=== PATIENT | female | born 1965 | race Two or more races ===

== ENCOUNTER → 2020-06-13 | Outpatient (CLI) | payer MEDICAID | END | disposition home or self-care (01) | LOC: Rad HDHVI 13:55 | PROVIDERS: ATTEND Internal Medicine | DX: I31.3 Pericardial effusion (noninflammatory) (principal); I10 Essential (primary) hypertension; R07.89 Other chest pain | CPT/HCPCS: 93306 ==

== ENCOUNTER → 2020-08-20 | Outpatient (CLI) | payer MEDICAID ==
[~2020-08-20] VITALS: Ht 160 cm; Wt 65.3 kg
[~2020-08-20] MED LIST: ADENOSINE 55 MG in GIVE UN-DILUTED 0 ML IV ONE; ADENOSINE 90 MG/30 ML INJ IV ONE
== END | disposition home or self-care (01) ==
LOC: Rad HDHVI 08:09
PROVIDERS: ATTEND Internal Medicine
DX: I10 Essential (primary) hypertension (principal); E78.00 Pure hypercholesterolemia, unspecified; E11.9 Type 2 diabetes mellitus without complications; F17.210 Nicotine dependence, cigarettes, uncomplicated; R06.02 Shortness of breath; R07.9 Chest pain, unspecified
CPT/HCPCS: 78452; 93005; 96374; 96375; A9500; J0153

== ENCOUNTER 2021-01-18 21:12 | Inpatient (IN) | payer MEDICAID ==
[~2021-01-18] VITALS: Ht 154.9 cm; Wt 64.8 kg
[2021-01-18 22:32] LABS: Basophils # (auto) 0.1 10 ^3/uL (0-0.2); Basophils % (auto) 0.7 % (0.0-2.0); Eosinophils # (auto) 0.3 10 ^3/uL (0-0.8); Eosinophils % (auto) 2.7 % (0.0-7.0); Hematocrit 39.2 % (36.0-46.0); Hemoglobin 14.1 g/dL (12.2-16.2); Lymphocytes # (auto) 3.5 10 ^3/uL (0.4-5.4); Lymphocytes % (auto) 35.2 % (10.0-50.0); Mean Corpuscular Hemoglobin 31.7 pg (28.0-32.0); Mean Corpuscular Hgb Conc. 35.9 g/dL (32.0-36.0); Mean Corpuscular Volume 88.3 fL (80.0-100.0); Monocytes # (auto) 0.6 10 ^3/uL (0-1.3); Monocytes % (auto) 6.3 % (0.0-12.0); Neutrophils # (auto) 5.5 10 ^3/uL (1.6-8.6); Neutrophils % (auto) 55.1 % (37.0-80.0); Nucleated Red Blood Cells % 0.3 %; Platelet Count (auto) 314 10^3/uL (140-450); Red Blood Cells 4.44 10^6/uL (4.0-5.20); Red Cell Distribution Width 13.1 % (11.8-14.3)
[2021-01-18 22:47] LABS: Alanine Aminotransferase 22 U/L (13-56); Albumin 3.1 g/dL (3.4-5.0); Anion Gap 7 (5-15); Aspartate Aminotransferase 20 U/L (15-37); BUN/Creatinine Ratio 22.1; Blood Urea Nitrogen 15 mg/dL (7-18); Calcium 8.4 mg/dL (8.5-10.1); Carbon Dioxide 25 mmol/L (21-32); Chloride 100 mmol/L (98-107); GFR African American 115 mL/min; GFR Non-African American 95 mL/min; Glucose 337 mg/dL (74-106); Potassium 3.8 mmol/L (3.5-5.1); Sodium 132 mmol/L (136-145)
[2021-01-18 22:48] LABS: INR 1.02 (0.9-1.15); Partial Thromboplastin Time 26.8 sec (23.0-31.2)
[2021-01-18 22:51] LABS: Alkaline Phosphatase 119 U/L (45-117); Bilirubin, Total 0.2 mg/dL (0.2-1.0); Total Protein 7.4 g/dL (6.4-8.2)
[2021-01-19] MEDS ORDERED: MORPHINE SULF INJ 2 MG/ML SYRINGE 1ML IV PRN (05:45)
[2021-01-19] MEDS ORDERED: NITROGLYCERIN 0.4 MG SL TAB SL PRN (05:45)
[2021-01-19] MEDS ORDERED: DEXTROSE (50%) 50ML SYRG IV PRN (06:00)
[2021-01-19] MEDS: ACCU-CHEK COMFORT CURVE STRIP VI SCH ×4 (07:08→21:36)
[2021-01-19 07:21] LABS: Cholesterol 226 mg/dL (< 200)
[2021-01-19] MEDS: InsuLIN REG 1unit/0.01ml Soln (100units/ml) SC SCH ×4 (07:22→21:36)
[2021-01-19 07:23] LABS: HDL Cholesterol 32 mg/dL (40-59); LDL Cholesterol 148 mg/dL (< 100); Triglycerides 374 mg/dL (< 150)
[2021-01-19] MEDS: ASPirin 81 mg TAB PO SCH (10:37)
[2021-01-19] MEDS: ATORVASTATIN 20 MG TAB PO SCH (10:38)
[2021-01-19] MEDS: METOPROLOL TARTRATE 25 MG TAB PO SCH ×2 (10:39→21:33)
[2021-01-19] MEDS: ENOXAPARIN SOD 40 MG/0.4 ML SYRINGE SC SCH (10:41)
[2021-01-19 11:02] VITALS: BP 161/88
[2021-01-19] MEDS ORDERED: LISINOPRIL 10 MG TAB PO ONE (11:15)
[2021-01-19 12:19] LABS: Urine Bacteria FEW /hpf (None Seen); Urine Blood Negative /uL (Negative); Urine Hyaline Cast FEW /lpf (0 - 2); Urine Mucus FEW (None Seen); Urine Specific Gravity 1.026 (1.001-1.035); Urine WBC 8 /hpf (0 - 5)
[2021-01-19 13:00] VITALS: BP_SYST 142; BP_SYST 144; BP_DIAS 75; BP_DIAS 82
[2021-01-19] MEDS: GEMFIBROZIL 600 MG TAB PO SCH (13:21)
[2021-01-19 16:42] VITALS: BP 143/71
[2021-01-19 21:55] VITALS: BP 134/82
[2021-01-20 05:26] VITALS: BP 132/75
[2021-01-20] MEDS: ACCU-CHEK COMFORT CURVE STRIP VI SCH ×4 (06:03→21:44)
[2021-01-20] MEDS: InsuLIN REG 1unit/0.01ml Soln (100units/ml) SC SCH ×4 (06:04→21:46)
[2021-01-20 06:08] LABS: Basophils # (auto) 0 10 ^3/uL (0-0.2); Basophils % (auto) 0.5 % (0.0-2.0); Eosinophils # (auto) 0.2 10 ^3/uL (0-0.8); Eosinophils % (auto) 2.7 % (0.0-7.0); Hematocrit 37.4 % (36.0-46.0); Hemoglobin 13.2 g/dL (12.2-16.2); Lymphocytes # (auto) 2.6 10 ^3/uL (0.4-5.4); Lymphocytes % (auto) 35.1 % (10.0-50.0); Mean Corpuscular Hemoglobin 30.7 pg (28.0-32.0); Mean Corpuscular Hgb Conc. 35.2 g/dL (32.0-36.0); Mean Corpuscular Volume 87.3 fL (80.0-100.0); Monocytes # (auto) 0.6 10 ^3/uL (0-1.3); Monocytes % (auto) 7.5 % (0.0-12.0); Neutrophils % (auto) 54.2 % (37.0-80.0); Platelet Count (auto) 288 10^3/uL (140-450); Red Blood Cells 4.28 10^6/uL (4.0-5.20); Red Cell Distribution Width 12.7 % (11.8-14.3); White Blood Cell 7.4 10^3/uL (4.4-10.8)
[2021-01-20 06:37] LABS: BUN/Creatinine Ratio 36.4; Calcium 8.6 mg/dL (8.5-10.1)
[2021-01-20 09:00] VITALS: BP 140/77
[2021-01-20] MEDS: ASPirin 81 mg TAB PO SCH (09:14)
[2021-01-20] MEDS: METOPROLOL TARTRATE 25 MG TAB PO SCH ×2 (09:14→21:43)
[2021-01-20] MEDS: ATORVASTATIN 20 MG TAB PO SCH (09:14)
[2021-01-20] MEDS: GEMFIBROZIL 600 MG TAB PO SCH (09:14)
[2021-01-20] MEDS: LISINOPRIL 10 MG TAB PO SCH (09:15)
[2021-01-20] MEDS: ENOXAPARIN SOD 40 MG/0.4 ML SYRINGE SC SCH (09:15)
[2021-01-20] MEDS ORDERED: GEMF-19 PO (09:40)
[2021-01-20] MEDS ORDERED: LISI40TA11 PO (09:40)
[2021-01-20] MEDS ORDERED: GLIP5TAB12 PO (09:40)
[2021-01-20] MEDS ORDERED: ACE3T PO (09:42)
[2021-01-20] MEDS ORDERED: LIDO5DIS21 TOP (09:44)
[2021-01-20 12:42] VITALS: BP 113/77
[2021-01-20 15:47] VITALS: BP 134/72
[2021-01-20 17:22] VITALS: BP 121/80
[2021-01-20 21:41] VITALS: BP 135/75
[2021-01-21 05:01] VITALS: BP 146/85
[2021-01-21] MEDS: InsuLIN REG 1unit/0.01ml Soln (100units/ml) SC SCH ×2 (06:03→11:47)
[2021-01-21] MEDS: ACCU-CHEK COMFORT CURVE STRIP VI SCH ×2 (06:04→11:46)
[2021-01-21 09:00] VITALS: BP 135/74
[2021-01-21] MEDS: GEMFIBROZIL 600 MG TAB PO SCH (09:36)
[2021-01-21] MEDS: ASPirin 81 mg TAB PO SCH (09:36)
[2021-01-21] MEDS: LISINOPRIL 10 MG TAB PO SCH (09:38)
[2021-01-21] MEDS: ATORVASTATIN 20 MG TAB PO SCH (09:38)
[2021-01-21] MEDS: ENOXAPARIN SOD 40 MG/0.4 ML SYRINGE SC SCH (09:39)
[2021-01-21] MEDS: METOPROLOL TARTRATE 25 MG TAB PO SCH (09:39)
[2021-01-21 12:24] VITALS: BP 134/80
== END 2021-01-21 12:15 | disposition home or self-care (01) | DRG 203 ==
LOC: ER 21:12 → TELE 01-19 05:37 → TELE-CENTR 01-19 09:36
PROVIDERS: ADMIT Hospitalist; ATTEND Hospitalist
DX: R07.89 Other chest pain (principal); E87.1 Hypo-osmolality and hyponatremia; Z20.822 Contact with and (suspected) exposure to COVID-19; E88.09 Other disorders of plasma-protein metabolism, not elsewhere classified; I10 Essential (primary) hypertension; E11.9 Type 2 diabetes mellitus without complications; E78.1 Pure hyperglyceridemia; E78.5 Hyperlipidemia, unspecified; F17.210 Nicotine dependence, cigarettes, uncomplicated; Z80.0 Family history of malignant neoplasm of digestive organs; Z90.49 Acquired absence of other specified parts of digestive tract; Z79.899 Other long term (current) drug therapy
CPT/HCPCS: 36415; 71045; 80048; 80053; 80061; 81001; 82962; 83036; 83880; 84484; 85025; 85610; 85730; 87426; 93005; 93306; 96372; G0378; J1815